=== PATIENT | female | born 1945 | race Caucasian/White ===

== ENCOUNTER → 2017-05-19 | Outpatient (CLI) | payer OTHER ==
[~2017-05-19] VITALS: Ht 162.6 cm; Wt 67.6 kg
[~2017-05-19] MED LIST: ALLEGRA ALLERG180 MG PO; ASPIR 8181 MG PO; ATIVAN0.5 MG PO; CRESTOR10 MG PO; EFFEXOR XR75 MG PO; LISINOPRIL20 MG PO; TRAZODONE HCL50 MG PO; VENLAFAXINE HC150 M1 PO; VITAMIN D2000 UNIT PO
--- NOTE | ~2017-05-19 | P ---
[facility] [place] [address] PROCEDURE REPORT Name: SNOW OZUNA Declan Room #: REG [facility]#: [id number] Admission: 05/19/17 Attend Phys: Tia Wilburn MD Discharge: Date of : 41 Report #: [id number] THIS REPORT FOR: //name// CC: TIA Wilburn BRIEF HISTORY: The patient is a 71-year-old woman who was recently found to have Hemoccult-positive stools. She has not observed any GI bleeding and she has been asymptomatic. This was discovered on a routine physical exam PREOPERATIVE DIAGNOSIS: Hemoccult-positive stools. POSTOPERATIVE DIAGNOSIS: Moderate diffuse gastritis without ulceration. MEDICATIONS: Deep sedation with propofol per anesthesia. SPECIMEN: Biopsies of gastritis. ESTIMATED BLOOD LOSS: 3 mL. PROCEDURE: EGD with biopsy. FINDINGS: Prior to propofol sedation, procedure of upper endoscopy discussed with the patient as well as potential risks and its complications. She indicates she understands and desires to proceed. DESCRIPTION OF PROCEDURE: With the patient in left lateral decubitus position, the [employer] video endoscope was inserted in cervical esophagus under direct vision without difficulty. Examination of this organ through its entire length revealed normal esophageal mucosa down to the squamocolumnar junction. The squamocolumnar junction was noted to be unremarkable. No ulcers or erosions were seen. No bleeding lesions were seen. There was no evidence of esophagitis or Berrios mucosa. A hiatus hernia was not seen. No bleeding lesions were seen. The scope was advanced in the stomach, was examined on end view as well as retroflexed views. There was diffuse erythema in the antrum of the stomach to a moderate degree. However, the mucosa was intact and no ulcers or erosions were seen. Upon retroflexion, no mass lesions were seen and the mucosa in the proximal stomach was normal. The pylorus was normal. Duodenal bulb and post bulbar duodenal sweep down to the third portion were inspected and noted to be unremarkable. No bleeding lesions were seen. At that point, the scope was slowly withdrawn under careful circumferential views, confirmed the above findings. The patient tolerated the procedure well. CONDITION OF THE PATIENT UPON DISCHARGE: Following the procedure, the patient drowsy and prepared for colonoscopy. [address] [address] PROCEDURE REPORT Name: SNOW OZUNA Declan Room #: REG [facility]#: [id number] Admission: 05/19/17 Attend Phys: Tia Wilburn MD Discharge: Date of : 41 Report #: [id number] INSTRUCTIONS TO THE PATIENT AND FAMILY AT THE TIME OF DISCHARGE: We will proceed with colonoscopy at this time. A bleeding lesion was not seen on the upper endoscopy. We will follow up on biopsies and make further recommendations as needed. Proceed with colonoscopy. By: [id number] Tia Wilburn MD /nt
--- NOTE | ~2017-05-19 | S ---
[facility] [place] [address] SURGICAL PATH RPT PROCEDURE Name: GERTRUDE SUNG Declan Room #: REG [facility] M.Estrella.#: [id number] Admission: 05/19/17 Date of : 41 Discharge: Report #: [id number] Path Case #: [id number] PATHOLOGY REPORT COLLECTION DATE: 05/19/2017 RECEIVED DATE: 05/19/2017 SUBMITTING PHYS: Dr. Loy Wilburn OTHER PHYS: Dr. Loy Hernandez SPECIMEN(S) RECEIVED: A.Bx stomach R/O H pylori * * * * * * * * * * * * FINAL DIAGNOSIS: Stomach, biopsy: - Chronic superficial gastritis, mild. - No evidence of Helicobacter pylori on immunoperoxidase stain. (SKM:jong; 05/20/2017) PATHOLOGIST: Marie Díaz M.D. REPORT ELECTRONICALLY SIGNED BY: Marie Díaz M.D. DATE/TIME: 05/20/2017 12:05 * * * * * * * * * * * * GROSS PATHOLOGY: Received in formalin labeled "Gertrude SungTOM stomach, rule out H. pylori," are 7 segments of an soft tissue measuring 1.5 x 1.3 x 0.3 cm in aggregate dimensions and ranging from 0.2 to 0.6 cm in maximum dimension. The specimen is submitted entirely in cassette A1. (TSD; 05/19/2017) CLINICAL HISTORY: Pre-OP DX: Blood in stool Post-OP DX: Gastritis, diverticulosis, small hemorrhoid INITIAL CPT CODE(S): A; 20082, 12371 Professional services performed by [facility] at [facility] [address], [place] [address] Technical services performed by [facility] at [address] [place] [address], [facility] [address] [address]. [facility] [address] [place] [address] SURGICAL PATH RPT PROCEDURE Name: GERTRUDE SUNG Room #: REG CLBety Lugo.#: [id number] Admission: 05/19/17 Date of : 41 Discharge: Report #: [id number] Path Case #: [id number] [facility] [address] [address] PHONE: [phone] DIRECTOR: Eugenio Joy M.D. * * * END OF REPORT * * *
--- NOTE | ~2017-05-19 | P ---
[facility] [place] [address] PROCEDURE REPORT Name: SNOW OZUNA Room #: REG [facility]#: [id number] Admission: 05/19/17 Attend Phys: Loy Wilburn MD Discharge: Date of : 41 Report #: [id number] THIS REPORT FOR: //name// CC: Loy Wilburn BRIEF HISTORY: The patient is a 71-year-old woman with recent findings of Hemoccult-positive stools. Last colonoscopy was more than 10 years ago. PREOPERATIVE DIAGNOSIS: Hemoccult-positive stools. POSTOPERATIVE DIAGNOSES: 1. Moderate sigmoid diverticulosis coli. 2. Small internal hemorrhoids. MEDICATIONS: Deep sedation with propofol per anesthesia. SPECIMEN: None. ESTIMATED BLOOD LOSS: None. PROCEDURE: Colonoscopy to cecum and terminal ileum. FINDINGS: Prior to propofol sedation, the procedure of colonoscopy discussed with the patient as well as potential risks and its complications. She indicates she understands and desires to proceed. DESCRIPTION OF PROCEDURE: With the patient in left lateral decubitus position, digital examination was completed which revealed no abnormalities. Subsequently, the [employer] video colonoscope was introduced in the rectum, advanced under direct vision to the cecum. Done with minimal difficulty. The cecum was identified by the ileocecal valve and the appendiceal orifice. I was also able to visualize the distal segment of the terminal ileum, which was inspected and noted to be unremarkable. No bleeding lesions were seen. At that point, the scope was withdrawn and careful circumferential views obtained including retroflexing the scope in the ascending colon. Upon slow withdrawal of the scope, the prep was excellent. The mucosa was within normal limits, normal vascular pattern, normal light reflex. No bleeding lesions were seen. No neoplastic changes were seen. No inflammatory changes were seen. She had normal colonic mucosa throughout the colon. She was noted to have a few small diverticula in the proximal colon. She was noted have moderate diverticular disease in the sigmoid colon with multiple wide-mouthed diverticula seen, but no endoscopic evidence of diverticulitis. The scope was withdrawn in the rectum and no abnormalities were seen. Upon retroflexion, small hemorrhoids were seen. The scope was withdrawn. The patient tolerated the procedure well. [facility] [address] [place] [address] PROCEDURE REPORT Name: SNOW OZUNA Room #: [facility]#: [id number] Admission: 05/19/17 Attend Phys: Loy Wilburn MD Discharge: Date of : 41 Report #: [id number] CONDITION OF THE PATIENT UPON DISCHARGE: Following procedure, the patient drowsy, aroused, conversant and will be discharged home when fully ambulatory. INSTRUCTIONS TO THE PATIENT AND FAMILY AT THE TIME OF DISCHARGE: Advised a high fiber diet due to the diverticular disease. Bleeding lesion not identified. She does have some small hemorrhoids as potential source of bleeding. She will follow up with Dr. Loy Hernandez. If it is felt that further investigation is warranted, next step would be an M2 capsule study if needed. For colorectal screening, I would suggest she consider colonoscopy in 10 years and would based completion that exam at that time on her overall health status at that point in time. Last colonoscopy more than 10 years ago. Withdrawal time from cecum was 13 minutes and 44 seconds. By: 0825 1003 Loy Wilburn MD /nt
== END | disposition home or self-care (01) ==
LOC: GI 06:45
DX: K64.8 Other hemorrhoids (principal); K57.30 Diverticulosis of large intestine without perforation or abscess without bleeding; K29.50 Unspecified chronic gastritis without bleeding; F41.9 Anxiety disorder, unspecified; F32.9 Major depressive disorder, single episode, unspecified; J45.990 Exercise induced bronchospasm; I10 Essential (primary) hypertension; E78.00 Pure hypercholesterolemia, unspecified; G47.33 Obstructive sleep apnea (adult) (pediatric); Z90.49 Acquired absence of other specified parts of digestive tract; Z98.890 Other specified postprocedural states
CPT/HCPCS: 62110; 62900